=== PATIENT | female | born 1980 | race Two or more races ===

== ENCOUNTER 2023-07-03 19:23 | Emergency (ER) | payer OTHER ==
[~2023-07-03] VITALS: Ht 154.9 cm; Wt 90.7 kg
[2023-07-03 19:51] VITALS: BP 127/84; TEMP 98.1
[2023-07-03] MEDS ORDERED: SILVER SULFADIAZINE CREAM 25 GM TUBE ONE (20:22)
[2023-07-03] MEDS ORDERED: ACETAMINOPHEN ES 500 MG TABLET ONE (20:23)
[2023-07-03] MEDS: IBUPROFEN 400 MG TABLET PO ONE (20:23)
[2023-07-03] MEDS ORDERED: IBUPROFEN 400 MG TABLET ONE (20:23)
[2023-07-03] MEDS: ACETAMINOPHEN ES 500 MG TABLET PO ONE (20:23)
[2023-07-03] MEDS: SILVER SULFADIAZINE CREAM 25 GM TUBE TP ONE (20:24)
[2023-07-03] MEDS ORDERED: SULF1TAB48 PO (20:36)
[2023-07-03] MEDS ORDERED: CEPH500C2 PO (20:36)
[2023-07-03] MEDS ORDERED: NAPR-1164 PO (20:36)
[2023-07-03] MEDS ORDERED: ACET-2605 PO (20:36)
[2023-07-03] MEDS ORDERED: SILV20CR13 TP (21:31)
[2023-07-03] MEDS ORDERED: SULFAMETH/TRIMETH 800/160 MG 1 UDTAB TABLET ONE (21:32)
[2023-07-03] MEDS ORDERED: CEPHALEXIN MONOHYDRATE 500 MG CAPSULE PO ONE (21:32)
[2023-07-03] MEDS: CEPHALEXIN MONOHYDRATE 500 MG CAPSULE PO ONE (21:36)
[2023-07-03] MEDS: SULFAMETH/TRIMETH 800/160 MG 1 UDTAB TABLET PO ONE (21:36)
[2023-07-03 22:09] VITALS: O2SAT 99
== END 2023-07-03 22:10 | disposition home or self-care (01) ==
LOC: ER 19:28
DX: L03.116 Cellulitis of left lower limb (principal); L97.529 Non-pressure chronic ulcer of other part of left foot with unspecified severity; Z60.2 Problems related to living alone
CPT/HCPCS: 73630-TC; 82962-TC